=== PATIENT | male | born 1975 | race Caucasian/White ===

== ENCOUNTER 2019-04-29 22:45 | Emergency (ER) | payer MEDICAID ==
[2019-04-30] MEDS ORDERED: Ketorolac INJ* 30 MG/ML 1 ML VIAL IM ONE (01:35)
[2019-04-30 01:40] LABS: Hematocrit 43 % (42-52); Hemoglobin 14.5 g/dL (14.0-18.0); Mean Corpuscular HGB Conc 34 g/dL (31-36); Mean Corpuscular Hemoglobin 29 pg (27-31); Mean Corpuscular Volume 84 fL (80-94); Mean Platelet Volume 9.9 fL (7.4-10.4); Platelet Count 296 10^3/uL (150-450); Red Blood Count 5.06 10^6 /uL (4.18-5.48); Red Cell Distribution Width 15 % (10-15); White Blood Count 7.3 10^3/uL (3.5-10.8)
--- NOTE | 2019-04-30 01:40 | UC ---
Lower Extremity/Ankle HPI - HPI Summary HPI Summary: 43 year old male presents to the ED with a chief complaint of right foot pain. Patient reports that he was so intoxicated by alcohol 8 days ago that he fell and was intubated. His foot pain started 4 days ago and has gradually worsened until it was unbearable today. Patient took ibuprofen for the pain. He has been keeping his leg elevated. - History of Current Complaint Chief Complaint: EDExtremityLower Stated Complaint: RT LEG PAIN PER EMS Time Seen by Provider: 04/30/19 01:16 Hx Obtained From: Patient Onset/Duration: Gradual Onset, Lasting Days, Still Present, Worse Since - 4 days ago Severity Initially: Mild Severity Currently: Moderate Pain Intensity: 6 Pain Scale Used: 0-10 Numeric Aggravating Factor(s): Ambulation Alleviating Factor(s): Elevation - Allergies/Home Medications Allergies/Adverse Reactions: Allergies Allergy/AdvReac Type Severity Reaction Status Date / Time bee venom protein (honey bee) Allergy Unknown Verified 04/29/19 22:49 Reaction Details Latex, Natural Rubber Allergy Hives Verified 04/29/19 22:48 morphine Allergy Hives Verified 04/29/19 22:48 PMH/Surg Hx/FS Hx/Imm Hx Previously Healthy: Yes - Surgical History Surgical History: None - Family History Known Family History: Positive: None - Social History Alcohol Use: recovering alcoholic Alcohol Amount: recovering alcoholic, last drink Apr 22 2019 Substance Use Type: Marijuana Substance Use Comment - Amount & Last Used: medical marijuana Smoking Status (MU): Current Every Day Smoker Have You Smoked in the Last Year: Yes Review of Systems All Other Systems Reviewed And Are Negative: Yes Constitutional: Negative: Fever Motor: Positive: Decreased ROM Musculoskeletal: Positive: Arthralgia, Edema, Myalgia Is Patient Immunocompromised?: No - Comments Additional Review of Systems Comments: Patient is not on any home medications. Physical Exam - Summary Physical Exam Summary: General: Well-developed, Well-nourished male. No acute distress. HEENT: Normocephalic, Atraumatic. Eyes: Conjuctiva normal, PERRL. Ears: TMs within normal limits. Nares: (-) discharge, (-) erythema. Oropharynx: Clear, mucous membranes moist, (-) exudates. Neck: Soft, FROM, (-) lymphadenopathy, (-) thyromegaly, (-) JVD. Cardiovascular: Normal sinus rhythm, (-) murmur. Lungs: Clear to auscultation bilaterally (-) wheezes, (-) rales, (-) rhonchi. Abdomen: Soft, non-tender, non-distended, (-) organomegaly, normal bowel sounds. Back: (-) CVA tenderness Extremities: Right ankle edema. Tender in anterior foot, lower leg, and medial and lateral malleolus. Limited ROM in right ankle. Normal sensation. Pulses intact. Normal capillary refill. Skin: Warm, dry, (-) rash. Neuro: Alert and oriented x3, no focal deficits. Psychiatric: Mood normal, affect normal. Triage Information Reviewed: Yes Vital Signs: Initial Vital Signs Temp 99.2 F 04/29/19 22:49 Pulse 78 04/29/19 22:49 Resp 14 04/29/19 22:49 BP 140/80 04/29/19 22:49 Pulse Ox 98 04/29/19 22:49 Vital Signs Reviewed: Yes Procedures - Sedation Patient Received Moderate/Deep Sedation with Procedure: No - Splinting Right Lower Extremity Pre-Made Type: aircast Pre-Proc Neuro Vasc Exam: normal Post-Proc Neuro Vasc Exam: normal Splint Applied by Provider: Julia Krishnamurthy Diagnostics - Radiology Ankle XR Radiology Interpretation Completed By: ED Physician Summary of Radiographic Findings: Impression of the ankle XR is normal. Dr. Krishnamurthy has reviewed and interpreted this XR. Discharge ED - Discharge Plan Referrals: No Primary Care Phys,NOPCP [Primary Care Provider] - - Attestation Statements Document Initiated by Scribe: Yes Documenting Scribe: Stanley Harrell Provider For Whom Scribe is Documenting (Include Credential): Julia Krishnamurthy MD. Scribe Attestation: Stanley Brennan, scribed for Julia Krishnamurthy MD. on 04/30/19 at 0239.
[2019-04-30 01:46] LABS: INR 1.07 (0.82-1.09)
[2019-04-30 01:59] LABS: ABS Basophils 0.1 10^3/ul (0-0.2); ABS Eosinophils 0.5 10^3/ul (0-0.6); ABS Lymphocytes 2.6 10^3/ul (1.0-4.8); Eosinophil % 7.5 %; Large Platelets Present; Nucleated Red Blood Cells % 0.2
[2019-04-30 02:46] LABS: Erythrocyte Sed Rate 14 mm/Hr (0-14)
--- NOTE | 2019-04-30 02:51 | ED ---
Lower Extremity - HPI Summary HPI Summary: 43 year old male presents to the ED with a chief complaint of right foot pain. Patient reports that he was so intoxicated by alcohol 8 days ago that he fell and was intubated. His foot pain started 4 days ago and has gradually worsened until it was unbearable today. Patient took ibuprofen for the pain. He has been keeping his leg elevated. - History of Current Complaint Chief Complaint: EDExtremityLower Stated Complaint: RT LEG PAIN PER EMS Time Seen by Provider: 04/30/19 01:16 Hx Obtained From: Patient Mechanism Of Injury: Fall From A Standing Position Onset of Pain: Days Onset/Duration: Worse Since - 4 days ago Severity Initially: Mild Severity Currently: Moderate Pain Intensity: 6 Pain Scale Used: 0-10 Numeric Timing: Constant, Lasting Days Location: Is Discrete @ - Right Ankle Associated Signs And Symptoms: Positive: Negative Alleviating Factor(s): Elevation - Allergies/Home Medications Allergies/Adverse Reactions: Allergies Allergy/AdvReac Type Severity Reaction Status Date / Time bee venom protein (honey bee) Allergy Unknown Verified 04/29/19 22:49 Reaction Details Latex, Natural Rubber Allergy Hives Verified 04/29/19 22:48 morphine Allergy Hives Verified 04/29/19 22:48 PMH/Surg Hx/FS Hx/Imm Hx Infectious Disease History: Yes Infectious Disease History: Denies: Traveled Outside the [place] in Last 30 Days - Family History Known Family History: Positive: None - Social History Alcohol Use: recovering alcoholic Alcohol Amount: recovering alcoholic, last drink Apr 22 2019 Substance Use Type: Reports: Marijuana Substance Use Comment - Amount & Last Used: medical marijuana Smoking Status (MU): Current Every Day Smoker Have You Smoked in the Last Year: Yes Review of Systems - ROS Summary Review of Systems Summary: No home medications. Negative: Fever Positive: Arthralgia, Decreased ROM, Edema All Other Systems Reviewed And Are Negative: Yes Physical Exam - Summary Physical Exam Summary: General: Well-developed, Well-nourished male. No acute distress. HEENT: Normocephalic, Atraumatic. Eyes: Conjuctiva normal, PERRL. Ears: TMs within normal limits. Nares: (-) discharge, (-) erythema. Oropharynx: Clear, mucous membranes moist, (-) exudates. Neck: Soft, FROM, (-) lymphadenopathy, (-) thyromegaly, (-) JVD. Cardiovascular: Normal sinus rhythm, (-) murmur. Lungs: Clear to auscultation bilaterally (-) wheezes, (-) rales, (-) rhonchi. Abdomen: Soft, non-tender, non-distended, (-) organomegaly, normal bowel sounds. Back: (-) CVA tenderness Extremities: Right ankle edema. Tender in anterior foot, lower leg, and medial and lateral malleolus. Limited ROM in right ankle. Normal sensation. Pulses intact. Normal capillary refill. Skin: Warm, dry, (-) rash. Neuro: Alert and oriented x3, no focal deficits. Psychiatric: Mood normal, affect normal. Triage Information Reviewed: Yes Vital Signs On Initial Exam: Initial Vitals Temp Pulse Resp BP Pulse Ox 99.2 F 78 14 140/80 98 04/29/19 22:49 04/29/19 22:49 04/29/19 22:49 04/29/19 22:49 04/29/19 22:49 Vital Signs Reviewed: Yes Procedures - Sedation Patient Received Moderate/Deep Sedation with Procedure: No - Splinting Right Lower Extremity Pre-Made Type: aircast Pre-Proc Neuro Vasc Exam: normal Post-Proc Neuro Vasc Exam: normal Splint Applied by Provider: Julia Krishnamurthy - Vital Signs Vital Signs Temp Pulse Resp BP Pulse Ox 04/29/19 22:49 99.2 F 78 14 140/80 98 - Laboratory Lab Results: Lab Results 04/30/19 04/30/19 04/30/19 Range/Units 01:33 01:33 01:33 WBC 7.3 (3.5-10.8) 10^3/uL RBC 5.06 (4.18-5.48) 10^6 /uL Hgb 14.5 (14.0-18.0) g/dL Hct 43 (42-52) % MCV 84 (80-94) fL MCH 29 (27-31) pg MCHC 34 (31-36) g/dL RDW 15 (10-15) % Plt Count 296 (150-450) 10^3/uL MPV 9.9 (7.4-10.4) fL Neut % (Auto) 41.4 % Lymph % (Auto) 36.0 % [place] % (Auto) 14.1 % Eos % (Auto) 7.5 % Baso % (Auto) 1.0 % Absolute Neuts (auto) 3.0 (1.5-7.7) 10^3/ul Absolute Lymphs (auto) 2.6 (1.0-4.8) 10^3/ul Absolute Monos (auto) 1.0 H (0-0.8) 10^3/ul Absolute Eos (auto) 0.5 (0-0.6) 10^3/ul Absolute Basos (auto) 0.1 (0-0.2) 10^3/ul Absolute Nucleated RBC 0.0 10^3/ul Nucleated RBC % 0.2 Large Platelets Present ESR 14 (0-14) mm/Hr INR (Anticoag Therapy) 1.07 (0.82-1.09) Lactic Acid 0.9 (0.5-2.0) mmol/L C-Reactive Protein (<8.01) mg/L 04/30/19 Range/Units 01:33 WBC (3.5-10.8) 10^3/uL RBC (4.18-5.48) 10^6 /uL Hgb (14.0-18.0) g/dL Hct (42-52) % MCV (80-94) fL MCH (27-31) pg MCHC (31-36) g/dL RDW (10-15) % Plt Count (150-450) 10^3/uL MPV (7.4-10.4) fL Neut % (Auto) % Lymph % (Auto) % [place] % (Auto) % Eos % (Auto) % Baso % (Auto) % Absolute Neuts (auto) (1.5-7.7) 10^3/ul Absolute Lymphs (auto) (1.0-4.8) 10^3/ul Absolute Monos (auto) (0-0.8) 10^3/ul Absolute Eos (auto) (0-0.6) 10^3/ul Absolute Basos (auto) (0-0.2) 10^3/ul Absolute Nucleated RBC 10^3/ul Nucleated RBC % Large Platelets ESR (0-14) mm/Hr INR (Anticoag Therapy) (0.82-1.09) Lactic Acid (0.5-2.0) mmol/L C-Reactive Protein 18.02 H (<8.01) mg/L Result Diagrams: 04/30/19 01:33 Lab Statement: Any lab studies that have been ordered have been reviewed, and results considered in the medical decision making process. - Radiology Ankle XR Radiology Interpretation Completed By: ED Physician Summary of Radiographic Findings: Impression of the ankle XR is normal. Dr. Krishnamurthy has reviewed and interpreted this XR. Lower Extremity Course/Dx - Course Course Of Treatment: 43-year-old male with swelling of the right ankle. Multiple unknown falls many days ago severely intoxicated.. Patient complains of right ankle pain and swelling. States he is trying to elevated and took ibuprofen did not help. Patient has been ambulating. He is currently at rehabilitation. States they have called for a splint for him but he doesn't think it'll be here till next week some time. History, physical and x-rays consistent with ankle sprain. Patient placed in a gel cast. Follow-up with PCP. Follow up sooner for any worsening symptoms. - Diagnoses Provider Diagnoses: Ankle sprain Discharge ED - Sign-Out/Discharge Documenting (check all that apply): Patient Departure - discharge - Discharge Plan Condition: Stable Disposition: HOME Patient Education Materials: Ankle Sprain (ED) Referrals: [facility] [Outside] Additional Instructions: Follow up with [facility] in 2-3 days. Return to the Emergency Room if you experience new or worsened symptoms. - Billing Disposition and Condition Condition: STABLE Disposition: Home - Attestation Statements Document Initiated by Cheri: Yes Documenting Scribe: Stanley Harrell Provider For Whom Cheri is Documenting (Include Credential): Julia Krishnamurthy MD. Scribe Attestation: Stanley Brennan, scribed for Julia Krishnamurthy MD. on 04/30/19 at 0341. Scribe Documentation Reviewed: Yes Provider Attestation: The documentation as recorded by the Stanley brothers accurately reflects the service I personally performed and the decisions made by me, Julia Krishnamurthy MD. Status of Scribe Document: Viewed
[2019-04-30 04:14] VITALS: BP 155/94
== END 2019-04-30 04:12 | disposition home or self-care (01) ==
LOC: ED 22:45
DX: S93.401A Sprain of unspecified ligament of right ankle, initial encounter (principal); W19.XXXA Unspecified fall, initial encounter; Y92.9 Unspecified place or not applicable; F17.200 Nicotine dependence, unspecified, uncomplicated; Z88.5 Allergy status to narcotic agent; Z91.040 Latex allergy status
CPT/HCPCS: 36415; 83605; 85025; 85610; 85652; 86140; 96372; 99282; J1885